=== PATIENT | female | born 2000 | race Caucasian/White ===

== ENCOUNTER → 2024-06-10 10:00 | Outpatient (CLI) | payer OTHER, SELFPAY | PROVIDERS: Visit Provider Nurse Practitioner Family | DX: R30.0 Dysuria (principal) | CPT/HCPCS: 87086 ==

== ENCOUNTER → 2024-06-21 12:11 | Outpatient (CLI) | payer OTHER, SELFPAY | PROVIDERS: Referring Provider Nurse Practitioner Adult Health; Visit Provider Nurse Practitioner Adult Health | DX: Z11.3 Encounter for screening for infections with a predominantly sexual mode of transmission (principal) | CPT/HCPCS: 87491; 87591 ==

== ENCOUNTER → 2024-12-12 06:26 | Outpatient (CLI) | payer OTHER, SELFPAY | PROVIDERS: Visit Provider Physician Assistant Medical | DX: N39.0 Urinary tract infection, site not specified (principal) | CPT/HCPCS: 87086 ==

== ENCOUNTER → 2025-01-08 12:03 | Outpatient (CLI) | payer OTHER, SELFPAY ==
--- NOTE | 2025-01-08 12:04 | DI.US.S_ITS ---
PROCEDURE: US RENAL COMPLETE INDICATIONS: recurrant UTI TECHNIQUE: Real-time scanning was performed of the kidneys and bladder, with image documentation. COMPARISON: None. FINDINGS: Kidneys: Kidneys are normal in size. Right kidney measures 11.1 cm long; left kidney measures 11.6 cm long. Right renal cortical thickness is 1.5 cm; left renal cortical thickness is 1.5 cm. Renal cortical echotexture is normal. No hydronephrosis or nephrolithiasis. No suspicious solid mass lesions. Bladder: Pre-void bladder volume is 577 mL. Post-void residual is 0 mL. Pre-void images demonstrate no intraluminal masses or stones. On pre-void images, left ureteral jets are noted with color Doppler interrogation. (Of note, ureteral jets may not be detectable in up to 25% of cases due to insufficient differences in specific gravity between ureteral and bladder urine). Miscellaneous: Incidental 5.8 cm right ovarian cyst IMPRESSION: No calculi or hydronephrosis. Incidental large right ovarian cyst Approved by: Everette Browning M.D. on 01/08/2025 at 19:05
== END ==
PROVIDERS: PCP Physician Assistant Medical; Referring Provider Physician Assistant Medical; Visit Provider Physician Assistant Medical
DX: N39.0 Urinary tract infection, site not specified (principal); N83.201 Unspecified ovarian cyst, right side
CPT/HCPCS: 76770

== ENCOUNTER → 2025-02-05 11:24 | Outpatient (CLI) | payer OTHER, SELFPAY ==
--- NOTE | 2025-02-05 11:25 | DI.US.S_ITS ---
PROCEDURE: US PELVIC COMPLETE INDICATIONS: r ovarian cyst: is it simple/complex/adenoma/dermoid?smaller TECHNIQUE: Real-time scanning was performed of the pelvic organs, with image documentation. Additional endovaginal scanning was necessary due to incomplete visualization of the adnexal and endometrial structures by transabdominal scanning. COMPARISON: [facility], US, US RENAL COMPLETE, 01/08/2025, 12:17. FINDINGS: Uterus: Uterus is anteverted and normal in size at 7.4 x 3.3 x 4.1 cm. The myometrium is homogeneous. The endometrium measures 5.4 mm combined thickness. Dilated left uterine vessels are noted. Ovaries: The right ovary measures 2.6 x 3.4 x 2.8 cm, with a calculated ovarian volume of 13.2 cc. The simple cyst at the inferior margin of the right ovary measuring 7.5 x 5.1 x 5.4 centimeters. The left ovary measures 2.3 x 2.9 x 2.0 cm, with a calculated ovarian volume of 7.0 cc. Greater than 12 follicles can be seen in each ovary. No adnexal masses are seen. Other: No pathologic free abdominal or pelvic fluid. IMPRESSION: Simple cyst at the inferior margin of the right ovary measuring 7.5 centimeters. Recommend short-term follow-up ultrasound in 6-12 weeks. Dilated left uterine vessels, nonspecific. Recommend correlation for pelvic congestion syndrome. We strive to produce accurate, complete, and clear reports of imaging services. To assist us in improving patient care, this report was composed using standard report templates and voice recognition software. Therefore, it may contain abnormal punctuation, insertions and/or omissions. Occasional wrong-word or sound-alike substitutions may occur. Though we review the report and make efforts to correct it, we do recommend that the report be read carefully in proper context to recognize any text inaccuracies. Dictated by: Ruy Lagos M.D. on 02/05/2025 at 15:26 Approved by: Ruy Lagos M.D. on 02/05/2025 at 15:31
== END ==
PROVIDERS: PCP Family Medicine; Referring Provider Nurse Practitioner Adult Health; Visit Provider Nurse Practitioner Adult Health
DX: N83.291 Other ovarian cyst, right side (principal)
CPT/HCPCS: 76830; 76856

== ENCOUNTER → 2025-06-27 13:31 | Outpatient (CLI) | payer OTHER, SELFPAY ==
--- NOTE | 2025-06-27 13:32 | DI.US.S_ITS ---
PROCEDURE: US PELVIC COMPLETE INDICATIONS: hx of right ovarian cyst, assess for same, pelvic pain TECHNIQUE: Real-time scanning was performed of the pelvic organs, with image documentation. Additional endovaginal scanning was necessary due to incomplete visualization of the adnexal and endometrial structures by transabdominal scanning. COMPARISON: [facility], , US PELVIC COMPLETE, 02/05/2025, 10:51. FINDINGS: Uterus: Uterus is anteverted and normal in size at 8.4 x 3.8 x 3.3 cm. The myometrium is homogeneous. The endometrium measures 3 mm combined thickness. IUD in the endometrial cavity. No fibroids seen. Ovaries: The right ovary measures 3 x 3 x 1.9 cm, with a calculated ovarian volume of 4 cc. The left ovary measures 2.4 x 1.4 x 1.3 cm, with a calculated ovarian volume of 2 cc. Less than 12 follicles can be seen in each ovary. Right ovarian cyst measuring 6.6 x 5.5 x 4.4 cm, estimated volume of 83 cc. (Previously 7.5 x 5.4 x 5.1 cm, volume of 107 cc). Anechoic. Posterior through transmission. No internal vascularity. Other: No pathologic free abdominal or pelvic fluid. IMPRESSION: 1. Right ovarian anechoic cyst measuring 6.6 cm. Mildly decreased in size. Given its large size recommend continued imaging surveillance. 2. IUD in the endometrial cavity. Endometrium measures 3 mm. We strive to produce accurate, complete, and clear reports of imaging services. To assist us in improving patient care, this report was composed using standard report templates and voice recognition software. Therefore, it may contain abnormal punctuation, insertions and/or omissions. Occasional wrong-word or sound-alike substitutions may occur. Though we review the report and make efforts to correct it, we do recommend that the report be read carefully in proper context to recognize any text inaccuracies. Dictated by: Edgar Gatica M.D. on 06/27/2025 at 15:53 Approved by: Edgar Gatica M.D. on 06/27/2025 at 16:00
== END ==
LOC: US 13:32
PROVIDERS: PCP Family Medicine; Referring Provider Nurse Practitioner Adult Health; Visit Provider Nurse Practitioner Adult Health
DX: N83.201 Unspecified ovarian cyst, right side (principal); N92.0 Excessive and frequent menstruation with regular cycle
CPT/HCPCS: 76830; 76856

== ENCOUNTER → 2025-09-20 09:46 | Outpatient (CLI) | payer OTHER, SELFPAY ==
[2025-09-20 19:01] LABS: Add Manual Diff / Slide Review NO; Hematocrit 37.2 % (36-46); Hemoglobin 12.5 g/dL (12.0-16.0); Lymphocytes Absolute Auto 1900 /uL (1100-4500); Mean Corpuscular HGB Conc 33.6 % (30-36); Mean Corpuscular Hemoglobin 28.7 PG (26-34); Mean Corpuscular Volume 85.4 fL (80-100); Platelet Count 342 X10^3/uL (150-400)
[2025-09-20 19:18] LABS: HEMOLYSIS < 15 (0-50); Iron 81 ug/dL (37-170)
[2025-09-20 19:23] LABS: Alanine Aminotransferase 21 IU/L (<35); Albumin 4.7 g/dL (3.5-5.0); Albumin Globulin Ratio 1.4 (1.0-2.8); Alkaline Phosphatase 58 U/L (38-126); Blood Urea Nitrogen 9 mg/dL (7-17); Calcium 9.5 mg/dL (8.4-10.2); Carbon Dioxide 23 mmol/L (22-32); Chloride 105 mmol/L (98-107); Cholesterol 155 mg/dL (140-199); Estimated Glomerular Filt Rate > 60 mL/min (>60); Globulin 3.3 g/dL (1.7-4.1); Glucose 88 mg/dL (70-99); HDL Cholesterol 45 mg/dL (40-60); HEMOLYSIS < 15 (0-50); Potassium 4.1 mmol/L (3.4-5.1); Sodium 137 mmol/L (137-145); Total Protein 8.0 g/dL (6.3-8.2); Triglycerides 92 mg/dL (35-150)
[2025-09-20 19:30] LABS: Percent Iron Saturation 24 % (15-50); Total Iron Binding Capacity 333 ug/dL (265-497); Transferrin 281 mg/dL (206-381)
[2025-09-20 19:35] LABS: Hemoglobin A1C% w Est Avg Glu 5.3 % (4.0-6.0)
[2025-09-20 19:43] LABS: Ferritin 22 ng/mL (6-137)
[2025-09-20 20:00] LABS: Thyroid Stimulating Hormone 1.19 uIU/mL (0.47-4.68)
== END ==
PROVIDERS: PCP Family Medicine; Visit Provider Family Medicine
DX: E66.9 Obesity, unspecified (principal); R53.83 Other fatigue; G47.10 Hypersomnia, unspecified; Z13.6 Encounter for screening for cardiovascular disorders; N92.1 Excessive and frequent menstruation with irregular cycle; E28.2 Polycystic ovarian syndrome; Z13.1 Encounter for screening for diabetes mellitus
CPT/HCPCS: 80053; 80061; 82728; 83036; 83498; 83540; 83550; 84403; 84443; 85025